=== PATIENT | female | born 1965 | race Caucasian/White ===

== ENCOUNTER → 2016-07-28 | Outpatient (CLI) | payer BC ==
--- NOTE | 2016-07-28 16:26 | CR ---
EXAMINATION: Bilateral knees HISTORY: Pain COMPARISON: 06/26/2014 TECHNIQUE: 4 views bilaterally FINDINGS: There is no acute osseous abnormality, dislocation, or fracture identified. Bone mineraliz ation and joint spaces appear normal. No soft tissue swelling or joint effusion. IMPRESSION: Unremarkable bilateral knees.
== END ==
LOC: MW.CHORTHO 11:07
PROVIDERS: ATTEND Physician Assistant
DX: M25.562 Pain in left knee (principal); M25.561 Pain in right knee
CPT/HCPCS: 735642650; 73564-50

== ENCOUNTER → 2016-08-05 | Outpatient (CLI) | payer BC ==
[2016-08-05 09:59] LABS: CHLORIDE,CL 104 mmol/L (98-110); SODIUM,NA 138 mmol/L (136-146)
== END ==
LOC: MW.CHIM 08:55
PROVIDERS: ATTEND Internal Medicine
DX: I10 Essential (primary) hypertension (principal); R73.01 Impaired fasting glucose
CPT/HCPCS: 36415; 80053; 80061; 83036; 84443; 85025

== ENCOUNTER → 2016-10-14 | Outpatient (CLI) | payer BC ==
--- NOTE | 2016-10-14 15:08 | CR ---
EXAMINATION: Left shoulder HISTORY: Pain COMPARISON: 06/04/2014 TECHNIQUE: 3 views FINDINGS/IMPRESSION: There is no acute osseous abnormality, dislocation, or fracture identified. Acr omioclavicular osteoarthritic changes are noted. Bone mineralization is otherwise normal.
== END ==
LOC: MW.CHIM 10:24
PROVIDERS: ATTEND Internal Medicine
DX: M25.512 Pain in left shoulder (principal); M19.012 Primary osteoarthritis, left shoulder
CPT/HCPCS: 36415; 73030-26-LT; 73030-LT; 85652; 86140

== ENCOUNTER 2016-11-12 09:13 | Day surgery (SDC) | payer BC ==
[~2016-11-12 09:13] MED LIST: Acetaminophen/HYDROcodone 325-5 MG Tab PO PRN; Lactated Ringers 1,000 ML IV SCH; Lidocaine 1% 20 ML MDV ONE; ceFAZolin 2 GM in Premix Bag 1 BAG IV SCH
[2016-11-12] MEDS ORDERED: Ondansetron 4 MG/2 ML SDV ONE (10:26)
[2016-11-12] MEDS ORDERED: fentaNYL 250 MCG/5 ML SDV ONE (10:26)
[2016-11-12] MEDS ORDERED: Midazolam 1 MG/ML 2 ML SDV ONE (10:26)
[2016-11-12] MEDS ORDERED: Propofol 200 MG/20 ML SDV ONE (10:26)
[2016-11-12] MEDS ORDERED: Lidocaine 2% 5 ML SDV ONE (10:26)
[2016-11-12] MEDS ORDERED: ceFAZolin 1 GM Vial ONE (10:28)
[2016-11-12] MEDS ORDERED: Sodium Chloride 0.9% 20 ML ONE (10:28)
[2016-11-12] MEDS ORDERED: Albuterol/Ipratropium 3.0-0.5 MG/3 ML Neb Soln NEB ONE (11:08)
--- NOTE | 2016-11-12 11:08 | PCM.PREANE ---
Preanesthetic Assessment - Procedure Proposed Procedure: Left Knee Arthroscopic exam and care PRN - Anesthesia/Transfusion/Family Hx Anesthesia History: Prior Anesthesia Without Reaction Family History of Anesthesia Reaction: No Transfusion History: No Prior Transfusion(s) Intubation History: Unknown - Review of Systems General: No Symptoms Pulmonary: Other (smoker) Cardiovascular: Other (HTN - treated with meds) Gastrointestinal: No symptoms Neurological: Gait Disturbance (due to knee arthritis (bilateral)) - Physical Assessment NPO Status Date: 11/11/16 NPO Status Time: 23:00 Height: 5 ft 6 in Weight: 217 lb ASA Class: 3 Mental Status: Alert & Oriented x3 Airway Class: Mallampati = 1 Dentition: Reports: Normal Dentition, Partial Thyro-Mental Finger Breadths: 3 Mouth Opening Finger Breadths: 3 ROM/Head Extension: Full Lungs: Normal respiratory effort, Rhonchi (did not clear with coughs) Cardiovascular: Regular Rate, Regular Rhythm, No Murmurs - Lab Values: Laboratory Last Values Urine HCG, Qual NEGATIVE (NEGATIVE) 11/12/16 09:20 - Allergies Allergies/Adverse Reactions: Allergies Allergy/AdvReac Type Severity Reaction Status Date / Time No Known Allergies Allergy Verified 06/04/14 17:34 - Blood Blood Available: No Product(s) Available: None - Anesthesia Plan Free Text/Narrative:: Ordered albuterol neb treatment preop - Acknowledgements Anesthesia Type Planned: General Anesthesia (OET vs LMA) Pt an Appropriate Candidate for the Planned Anesthesia: Yes Alternatives and Risks of Anesthesia Discussed w Pt/Guardian: Yes Pt/Guardian Understands and Agrees with Anesthesia Plan: Yes PreAnesthesia Questionnaire HEENT History: Reports: Other (See Below) Other HEENT History: wears reading glasses, has top denture Cardiovascular History: Reports: Hypertension Gastrointestinal History: Reports: Hepatitis Other Gastrointestinal History: hepatitis C, 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: Endocrine/Metabolic History: Reports: Obesity/BMI 30+ - Past Surgical History Head Surgeries/Procedures: Reports: None Female Surgical History: Reports: Cervical Cryotherapy, Tubal Ligation Musculoskeletal Surgical History: Reports: Carpal Tunnel - SUBSTANCE USE Smoking Status *Q: Current Every Day Smoker Days Per Week of Alcohol Use: 1 Number of Drinks Per Day: 2 Total Drinks Per Week: 2 Recreational Drug Use History: No - HOME MEDS Home Medications: Home Meds Lisinopril 20 mg PO DAILY 11/06/16 [History] Ibuprofen 2 tab PO ASDIRECTED PRN 11/10/16 [History] - CURRENT (IN HOUSE) MEDS Current Meds: Current Medications Hydrocodone Bitart/Acetaminophen ([place] 325-5 Mg) 1 - 2 tab PO Q4H PRN PRN Reason: Pain Fentanyl (Sublimaze) 50 mcg IVPUSH Q5M PRN PRN Reason: Pain (severe 7-10) Stop: 11/13/16 08:39 Lactated Ringer's (Ringers, Lactated) 1,000 mls @ 100 mls/hr IV ASDIRECTED NATALIA Cefazolin Sodium/Dextrose 2 gm (/ Premix) 50 mls @ 100 mls/hr IV ONCALL [facility] Discontinued Medications Cefazolin Sodium (Ancef) Confirm Administered Dose 2 gm .ROUTE .STK-MED ONE Stop: 11/12/16 10:29 Fentanyl (Sublimaze) Confirm Administered Dose 250 mcg .ROUTE .STK-MED ONE Stop: 11/12/16 10:27 Sodium Chloride (Normal Saline) Confirm Administered Dose 20 mls @ as directed .ROUTE .STK-MED ONE Stop: 11/12/16 10:29 Lidocaine (Xylocaine-Mpf 2%) Confirm Administered Dose 5 ml .ROUTE .STK-MED ONE Stop: 11/12/16 10:27 Lidocaine HCl (Xylocaine 1%) Confirm Administered Dose 20 ml .ROUTE .STK-MED ONE Stop: 11/11/16 15:00 Midazolam HCl (Versed 1 Mg/Ml) Confirm Administered Dose 2 mg .ROUTE .STK-MED ONE Stop: 11/12/16 10:27 Ondansetron HCl (Zofran) Confirm Administered Dose 4 mg .ROUTE .STK-MED ONE Stop: 11/12/16 10:27 Propofol (Diprivan 20 Ml) Confirm Administered Dose 200 mg .ROUTE .STK-MED ONE Stop: 11/12/16 10:27
--- NOTE | 2016-11-12 11:57 | PCM.OPNOTE ---
- General Post-Op/Procedure Note Date of Surgery/Procedure: 11/12/16 Operative Procedure(s): L knee arthroscopy with limited synovectomy Post-Op Diagnosis: DJD L knee. Plica left knee Anesthesia Technique: General LMA Primary Surgeon: Rose Sepulveda Configuration Engineer: Jimena De La O in mLs: 5 Condition: Good Free Text/Narrative:: tt=16 min #[id number]
[2016-11-12] MEDS: fentaNYL 100 MCG/2 ML SDV IVPUSH PRN ×2 (12:57→13:02)
--- NOTE | 2016-11-12 13:53 | PCM.POSTAN ---
POST ANESTHESIA ASSESSMENT - MENTAL STATUS Mental Status: alert, oriented - RESPIRATORY Respiratory Status: respiratory rate WNL, airway patent, O2 saturation stable - CARDIOVASCULAR CV Status: pulse rate WNL, blood pressure stable - GASTROINTESTINAL GI Status: no symptoms - PAIN Pain Score: 2 - POST OP HYDRATION Hydration Status: adequate & stable
--- NOTE | 2016-11-12 13:55 | PCM48HPAN ---
Post Anesthesia Note - EVALUATION WITHIN 48HRS OF ANESTHETIC Vital Signs in Normal Range: Yes Patient Participated in Evaluation: Yes Respiratory Function Stable: Yes Airway Patent: Yes Cardiovascular Function Stable: Yes Hydration Status Stable: Yes Pain Control Satisfactory: Yes Nausea and Vomiting Control Satisfactory: Yes Mental Status Recovered: Yes
[2016-11-12 14:41] VITALS: BP 128/78
--- NOTE | 2016-11-12 15:20 | OR ---
SURGEON: Rose Sepulveda MD DATE OF PROCEDURE: 11/12/2016 PREOPERATIVE DIAGNOSIS: Left knee suprapatellar plica. POSTOPERATIVE DIAGNOSES: 1. Left knee suprapatellar plica. 2. Degenerative joint disease, left knee. PROCEDURE: Left knee arthroscopy with limited synovectomy. CYLINDER LOADER: Jimena De La O PA-C. ANESTHESIA: General. ESTIMATED BLOOD LOSS: 5 mL. TOURNIQUET TIME: 16 minutes. COMPLICATIONS: None. DVT PROPHYLAXIS: Not indicated. IMPLANTS USED: None. BRIEF HISTORY: Noreen is a 50-year-old female, who has had complaint of persistent left knee pain. She had tried conservative treatment, which did not give her lasting relief. Due to her lack of response to conservative treatment, I did recommend surgical intervention. The risks and goals of the procedure were discussed with the patient and were documented preoperatively. She agreed to proceed. DESCRIPTION OF PROCEDURE: The patient was properly identified and brought to the operating room. She was transferred from the OR cart and placed on the operating table in supine position. General anesthesia was administered. After adequate anesthesia was obtained, a well-padded tourniquet was applied to the left lower extremity. The left lower extremity was then prepped in a standard fashion using ChloraPrep solution. It was then sterilely draped. A time-out was performed to ensure correct site and procedure. Preoperative antibiotics were given. The surgical site had been marked preoperatively. An Esmarch was used to exsanguinate the left lower extremity and the tourniquet was inflated to 250 mmHg. An 11 blade scalpel was used to make a lateral portal arthrotomy. Blunt trocar and cannula were introduced into the suprapatellar pouch. The camera, inflow, and outflow were assembled. The suprapatellar pouch showed mild synovitis. Abundant plica folds were noted. These did not appear to be causing any intraarticular catching. The patellofemoral joint was then visualized. The patella did show evidence of grade 2 to grade 3 chondromalacia diffusely. The trochlear groove showed minor degenerative changes only. The patella appeared to track centrally. I then extended down the lateral and medial gutter. No loose bodies were identified. I then entered the medial compartment. A medial portal arthrotomy was established. A blunt probe was inserted. The meniscus was probed. Minor degenerative fraying was noted centrally, however, no tearing was noted. She did have diffuse grade 1 to grade 2 chondromalacia along both the femoral and tibial surfaces. I then entered the notch. Both the ACL and PCL were visualized and probed and found to be intact. I then entered the lateral compartment. There appeared to be minor softening with grade 1 to grade 2 chondromalacia along the lateral tibial plateau. No degenerative changes were noted along the lateral femoral condyle. The meniscus was probed and found to be intact. I then re-entered the patellofemoral joint. No wearing of the cartilage was noted and no chondroplasty was performed. I then entered the suprapatellar space. The plica folds were excised with a 4.0 mm shaver. Instruments were then removed from the knee. The portal sites were closed with 3-0 nylon. Lidocaine 1% was injected along the portal tracts. Xeroform gauze was placed over the wound and a bulky dressing was applied. The tourniquet was then deflated. She was awakened from her anesthetic and transferred back to the operating room cart. She was brought to recovery room in stable condition. All needle and sponge counts were correct. MARIE / TAI /[id number]
== END 2016-11-12 14:30 | disposition home or self-care (01) ==
LOC: MW.SDS 09:13
PROVIDERS: ATTEND Orthopaedic Surgery
PROC: 0SBD4ZZ Excision of Left Knee Joint, Percutaneous Endoscopic Approach (ICD-10-PCS; principal; 2016-11-12)
DX: M67.52 Plica syndrome, left knee (principal); M65.862 Other synovitis and tenosynovitis, left lower leg; M94.262 Chondromalacia, left knee; M17.0 Bilateral primary osteoarthritis of knee; F17.210 Nicotine dependence, cigarettes, uncomplicated; I10 Essential (primary) hypertension; E66.9 Obesity, unspecified; Z86.19 Personal history of other infectious and parasitic diseases; Z79.899 Other long term (current) drug therapy; Z68.35 Body mass index [BMI] 35.0-35.9, adult; Z98.51 Tubal ligation status; Z98.890 Other specified postprocedural states
CPT/HCPCS: 29875; 81025; A9270; J0690; J2250; J2405; J3010; J7120; 01400; 88304; J2704

== ENCOUNTER 2017-01-11 16:35 | Emergency (ER) | payer BC ==
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
[2017-01-11] MEDS ORDERED: Proparacaine 0.5% Ophth Soln 15 ML Bottle EYEBOTH STA (17:02)
[2017-01-11] MEDS ORDERED: Proparacaine 0.5% Ophth Soln 15 ML Bottle EYELF ONE (17:03)
[2017-01-11] MEDS ORDERED: Proparacaine 0.5% Ophth Soln 15 ML Bottle ONE (17:04)
[2017-01-11] MEDS ORDERED: diphenhydrAMINE 25 MG Cap PO ONE (17:22)
[2017-01-11 17:51] VITALS: BP 127/79
== END 2017-01-11 17:52 | disposition home or self-care (01) ==
LOC: MW.ED 16:35
DX: H10.12 Acute atopic conjunctivitis, left eye (principal); F17.210 Nicotine dependence, cigarettes, uncomplicated
CPT/HCPCS: 99283; A9270; 99282

== ENCOUNTER 2019-06-07 11:07 | Emergency (ER) | payer BC ==
--- NOTE | 2019-06-07 11:24 | EDM.PDOC ---
ED HPI GENERAL MEDICAL PROBLEM - General Chief Complaint: General Stated Complaint: STOMACH PAIN Time Seen by Provider: 06/07/19 11:20 Source of Information: Reports: Patient History Limitations: Reports: No Limitations - History of Present Illness INITIAL COMMENTS - FREE TEXT/NARRATIVE: HISTORY AND PHYSICAL: History of present illness: Patient is a 53-year-old female who presents to the emergency room today with complaints of right-sided chest wall pain. Patient reports that a few days ago she had coughed "really hard" and felt a popping sensation to her right lateral chest. States the area was tender and felt that it was painful to cough and take deep breaths. A day or 2 later she was reaching for something and felt like she "tore something" in her rib area. She states she had planned on seeing her primary care provider today (for gallbladder) but they called her to cancel her appointment and she is not able to be seen until tomorrow. That appointment was for assessment of her gallbladder which she states she has been having abdominal pain for several months, does not want this evaluated today as she already has an appointment for this tomorrow. Patient denies any fever, chills, headache, change in vision, syncope or near syncope. Denies any chest pain, back pain, shortness of breath or cough. Denies any abdominal pain, nausea , vomiting, diarrhea, constipation or dysuria. Has not noted any blood in urine or stool. Patient has been eating and drinking appropriately. Review of systems: As per history of present illness and below otherwise all systems reviewed and negative. Past medical history: As per history of present illness and as reviewed below otherwise noncontributory. Surgical history: As per history of present illness and as reviewed below otherwise noncontributory. Social history: See social history for further information Family history: As per history of present illness and as reviewed below otherwise noncontributory. Physical exam: General: Well-developed and well-nourished 53-year-old female. Alert and appropriate for age. Nontoxic-appearing and in no acute distress. HEENT: Atraumatic, normocephalic, pupils equal and reactive bilaterally, negative for conjunctival pallor or scleral icterus, mucous membranes moist, TMs normal bilaterally, throat clear, neck supple, nontender, trachea midline. No drooling or trismus noted. No meningeal signs. No hot potato voice noted. Lungs: Rhonchi noted to the right lower lung field, breath sounds equal bilaterally, right anterior and lateral chest wall pain with palpation -no herpetic lesions noted. Pain with deep breathing and coughing. Heart: S1S2, regular rate and rhythm without overt murmur Abdomen: Soft, nondistended, obese, nontender. Negative for masses or hepatosplenomegaly. Negative for costovertebral tenderness. Pelvis: Stable nontender. Skin: Intact, warm, dry. No lesions or rashes noted. Extremities: Atraumatic, moves all extremities per self without difficulty or deficits, negative for cords or calf pain. Neurovascular unremarkable. Neuro: Awake, alert, oriented. Cranial nerves II through XII unremarkable. Cerebellum unremarkable. Motor and sensory unremarkable throughout. Exam nonfocal. Notes: During the triage assessment the patient did fall as an indicator for sepsis protocol. Lab work is unremarkable with the exception that her lactate is elevated. IV fluids and abx have been hung. X-ray shows suspicion for 3 right- sided rib fractures involving the approximate seventh through ninth ribs. NO pneumonia noted. I did discuss with patient her elevated lactate and offered her admission. She states she has an appointment tomorrow morning with her primary care provider at [facility] for her gallbladder evaluation. She does not want admission. We did discuss the severity of a elevated lactate and this could be sepsis. We also discussed doing a CT of her chest which she declines. She states she feels much improved after the breathing treatment, pain medication and fluids. She is agreeable to receiving the antibiotics and to be discharged to home on antibiotics. I did encourage that she bring the lab report to her primary care provider tomorrow. We discussed signs and symptoms that would prompt her to return to the emergency room. Both patient and voiced understanding. Diagnostics: CBC, CMP, Lactic, CXR w/ rib, D[employer]: DuoNeb, [place], Solu-Medrol, Rocephin, IV fluid Prescription: [place], Z-David, Medrol Dosepak Impression: Rib fractures, multiple Elevated lactic acid level Plan: 1. Please use Tylenol and/or Ibuprofen as needed for pain and fever management. [place] 1-2 tabs every 4 hours PRN. 2. Get plenty of Rest. Encourage fluids to prevent dehydration. Take your discharge packet with you to your appointment tomorrow at [facility]. 3. Make sure you are using your incentive spirometer every 2-3 hours while awake. 4. Return to the ED as needed as discussed. Definitive disposition and diagnosis as appropriate pending reevaluation and review of above. right side pain Pain Score (Numeric/FACES): 10 - Related Data Allergies Allergy/AdvReac Type Severity Reaction Status Date / Time No Known Allergies Allergy Verified 06/04/14 17:34 Home Meds: Home Meds Acetaminophen/HYDROcodone [[place] 325-5 MG] 1 dose PO Q4H #20 tablet 06/07/19 [Rx ] Azithromycin [Zithromax] 1 dose PO DAILY 5 Days #6 tab 06/07/19 [Rx] methylPREDNISolone [Medrol] 1 dose PO DAILY 6 Days #1 dospk 06/07/19 [Rx] Past Medical History - Past Health History Medical/Surgical History: Denies Medical/Surgical History HEENT History: Reports: Other (See Below) Other HEENT History: wears reading glasses, has top denture Cardiovascular History: Reports: Hypertension Gastrointestinal History: Reports: Hepatitis Other Gastrointestinal History: hepatitis C, 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 History: Reports: None GRADUATE FELLOW History: Endocrine/Metabolic History: Reports: Obesity/BMI 30+ - Infectious Disease History Infectious Disease History: Reports: Hepatitis non A,B,C - Past Surgical History Head Surgeries/Procedures: Reports: None Female Surgical History: Reports: Cervical Cryotherapy, Tubal Ligation Musculoskeletal Surgical History: Reports: Carpal Tunnel Social & Family History - Caffeine Use Caffeine Use: Reports: Coffee ED ROS GENERAL - Review of Systems Review Of Systems: Comprehensive ROS is negative, except as noted in HPI. ED EXAM, GENERAL - Physical Exam Exam: See Below (See dictation) Course - Vital Signs Last Recorded V/S: Last Vital Signs Temp 96.9 F 06/07/19 13:17 Pulse 83 06/07/19 14:09 Resp 20 06/07/19 14:09 BP 142/90 H 06/07/19 13:17 Pulse Ox 96 06/07/19 14:09 - Orders/Labs/Meds Orders: Active Orders 24 hr Category Date Time Status Incentive Spirometry [RT Incentive Spirometry] [RC] Care 06/07/19 14:44 Active ASDIRECTED RT Aerosol Therapy [RC] ASDIRECTED Care 06/07/19 11:38 Active CULTURE BLOOD [BC] Stat Lab 06/07/19 13:39 Received CULTURE BLOOD [BC] Stat Lab 06/07/19 13:42 Received Blood Culture x2 Reflex Set [OM.PC] Stat Oth 06/07/19 13:23 Ordered Labs: Laboratory Tests 06/07/19 06/07/19 06/07/19 Range/Units 11:50 11:50 11:50 WBC 5.62 (4.0-11.0) K/uL RBC 4.78 (4.30-5.90) M/uL Hgb 15.2 (12.0-16.0) g/dL Hct 44.5 (36.0-46.0) % MCV 93.1 (80.0-98.0) fL MCH 31.8 (27.0-32.0) pg MCHC 34.2 (31.0-37.0) g/dL RDW Std Deviation 45.8 (28.0-62.0) fl RDW Coeff of Flaquito 13 (11.0-15.0) % Plt Count 194 (150-400) K/uL MPV 9.90 (7.40-12.00) fL Neut % (Auto) 55.3 (48.0-80.0) % Lymph % (Auto) 29.9 (16.0-40.0) % [place] % (Auto) 5.0 (0.0-15.0) % Eos % (Auto) 9.3 H (0.0-7.0) % Baso % (Auto) 0.5 (0.0-1.5) % Neut # (Auto) 3.1 (1.4-5.7) K/uL Lymph # (Auto) 1.7 (0.6-2.4) K/uL [place] # (Auto) 0.3 (0.0-0.8) K/uL Eos # (Auto) 0.5 (0.0-0.7) K/uL Baso # (Auto) 0.0 (0.0-0.1) K/uL Nucleated RBC % 0.0 /100WBC Nucleated RBCs # 0 K/uL D-Dimer, Quantitative 0.48 (0.0-0.50) mg/L FEU Lactate (0.20-2.00) mmol/L Sodium 138 (136-145) mmol/L Potassium 4.1 (3.5-5.1) mmol/L Chloride 99 (98-107) mmol/L Carbon Dioxide 30.3 (21.0-32.0) mmol/L BUN 12 (7.0-18.0) mg/dL Creatinine 0.8 (0.6-1.0) mg/dL Est Cr Clr Drug Dosing 77.88 mL/min Estimated GFR (MDRD) > 60.0 ml/min Glucose 203 H (74-106) mg/dL Calcium 9.0 (8.5-10.1) mg/dL Total Bilirubin 0.4 (0.2-1.0) mg/dL AST 32 (15-37) IU/L ALT 79 H (14-63) IU/L Alkaline Phosphatase 72 (46-116) U/L Total Protein 7.6 (6.4-8.2) g/dL Albumin 3.7 (3.4-5.0) g/dL Globulin 3.9 (2.6-4.0) g/dL Albumin/Globulin Ratio 0.9 (0.9-1.6) 06/07/19 Range/Units 12:35 WBC (4.0-11.0) K/uL RBC (4.30-5.90) M/uL Hgb (12.0-16.0) g/dL Hct (36.0-46.0) % MCV (80.0-98.0) fL MCH (27.0-32.0) pg MCHC (31.0-37.0) g/dL RDW Std Deviation (28.0-62.0) fl RDW Coeff of Flaquito (11.0-15.0) % Plt Count (150-400) K/uL MPV (7.40-12.00) fL Neut % (Auto) (48.0-80.0) % Lymph % (Auto) (16.0-40.0) % Denton % (Auto) (0.0-15.0) % Eos % (Auto) (0.0-7.0) % Baso % (Auto) (0.0-1.5) % Neut # (Auto) (1.4-5.7) K/uL Lymph # (Auto) (0.6-2.4) K/uL Denton # (Auto) (0.0-0.8) K/uL Eos # (Auto) (0.0-0.7) K/uL Baso # (Auto) (0.0-0.1) K/uL Nucleated RBC % /100WBC Nucleated RBCs # K/uL D-Dimer, Quantitative (0.0-0.50) mg/L FEU Lactate 2.1 H* (0.20-2.00) mmol/L Sodium (136-145) mmol/L Potassium (3.5-5.1) mmol/L Chloride (98-107) mmol/L Carbon Dioxide (21.0-32.0) mmol/L BUN (7.0-18.0) mg/dL Creatinine (0.6-1.0) mg/dL Est Cr Clr Drug Dosing mL/min Estimated GFR (MDRD) ml/min Glucose (74-106) mg/dL Calcium (8.5-10.1) mg/dL Total Bilirubin (0.2-1.0) mg/dL AST (15-37) IU/L ALT (14-63) IU/L Alkaline Phosphatase (46-116) U/L Total Protein (6.4-8.2) g/dL Albumin (3.4-5.0) g/dL Globulin (2.6-4.0) g/dL Albumin/Globulin Ratio (0.9-1.6) Meds: Medications Discontinued Medications Generic Name Dose Route Start Last Admin Trade Name Freq PRN Reason Stop Dose Admin Hydrocodone Bitart/Acetaminophen 1 tab 06/07/19 11:37 06/07/19 11:57 [place] 325-5 Mg PO 06/07/19 11:38 1 tab ONETIME ONE Administration Albuterol/Ipratropium 3 ml 06/07/19 11:38 06/07/19 11:57 Duoneb 3.0-0.5 Mg/3 Ml NEB 06/07/19 11:39 3 ml ONETIME ONE Administration Sodium Chloride 1,000 mls @ 999 mls/hr 06/07/19 13:21 06/07/19 13:39 Normal Saline IV 06/07/19 14:21 999 mls/hr STAT ONE Administration Ceftriaxone Sodium/Dextrose 1 50 mls @ 100 mls/hr 06/07/19 13:47 06/07/19 14: 08 gm/ Premix IV 06/07/19 14:16 100 mls/hr ONETIME ONE Administration Ketorolac Tromethamine 30 mg 06/07/19 13:24 06/07/19 13:39 Toradol IVPUSH 06/07/19 13:25 30 mg ONETIME ONE Administration Methylprednisolone Sodium Succinate 125 mg 06/07/19 13:24 06/07/19 13:39 Solu-Medrol IVPUSH 06/07/19 13:25 125 mg ONETIME ONE Administration Departure - Departure Time of Disposition: 14:41 Disposition: Home, Self-Care 01 Clinical Impression: Elevated lactic acid level Rib fracture Qualifiers: Encounter type: initial encounter Rib fracture type: multiple ribs Fracture type: closed Laterality: right Qualified Code(s): S22.41XA - Multiple fractures of ribs, right side, initial encounter for closed fracture - Discharge Information Prescriptions: Acetaminophen/HYDROcodone [[place] 325-5 MG] 1 dose PO Q4H #20 tablet Azithromycin [Zithromax] 1 dose PO DAILY 5 Days #6 tab methylPREDNISolone [Medrol] 1 dose PO DAILY 6 Days #1 dospk Referrals: Beka Reynoso MD [Primary Care Provider] - Forms: ED Department Discharge Additional Instructions: The following information is given to patients seen in the emergency department who are being discharged to home. This information is to outline your options for follow-up care. We provide all patients seen in our emergency department with a follow-up referral. The need for follow-up, as well as the timing and circumstances, are variable depending upon the specifics of your emergency department visit. If you don't have a primary care physician on staff, we will provide you with a referral. We always advise you to contact your personal physician following an emergency department visit to inform them of the circumstance of the visit and for follow-up with them and/or the need for any referrals to a consulting specialist. The emergency department will also refer you to a specialist when appropriate. This referral assures that you have the opportunity for follow-up care with a specialist. All of these measure are taken in an effort to provide you with optimal care, which includes your follow-up. Under all circumstances we always encourage you to contact your private physician who remains a resource for coordinating your care. When calling for follow-up care, please make the office aware that this follow-up is from your recent emergency room visit. If for any reason you are refused follow-up, please contact the [facility] Emergency Department at and asked to speak to the emergency department charge nurse. [facility] [address] [place] [address] [facility] [address] [place] [id number] 1. Please use Tylenol and/or Ibuprofen as needed for pain and fever management. [place] 1-2 tabs every 4 hours PRN. This medication may cause drowsiness a do not take it while driving her needing to be functioning outside of the house. 2. Get plenty of Rest. Encourage fluids to prevent dehydration. Take your discharge packet with you to your appointment tomorrow at [facility]. 3. Make sure you are using your incentive spirometer every 2-3 hours while awake. 4. Return to the ED as needed as discussed. Sepsis Event Note - Focused Exam Vital Signs: Vital Signs Temp Pulse Resp BP Pulse Ox 06/07/19 14:09 83 20 96 06/07/19 13:17 96.9 F 92 142/90 H 93 L 06/07/19 12:10 99 18 97 06/07/19 11:59 93 20 98 06/07/19 11:28 95.9 F 105 H 15 135/99 H 95 Date Exam was Performed: 06/07/19 Time Exam was Performed: 14:48 - My Orders Last 24 Hours: My Active Orders 06/07/19 11:38 RT Aerosol Therapy [RC] ASDIRECTED 06/07/19 13:23 Blood Culture x2 Reflex Set [OM.PC] Stat 06/07/19 13:39 CULTURE BLOOD [BC] Stat 06/07/19 13:42 CULTURE BLOOD [BC] Stat 06/07/19 14:44 Incentive Spirometry [RT Incentive Spirometry] [RC] ASDIRECTED - Assessment/Plan Last 24 Hours: My Active Orders 06/07/19 11:38 RT Aerosol Therapy [RC] ASDIRECTED 06/07/19 13:23 Blood Culture x2 Reflex Set [OM.PC] Stat 06/07/19 13:39 CULTURE BLOOD [BC] Stat 06/07/19 13:42 CULTURE BLOOD [BC] Stat 06/07/19 14:44 Incentive Spirometry [RT Incentive Spirometry] [RC] ASDIRECTED
[2019-06-07] MEDS ORDERED: Acetaminophen/HYDROcodone 325-5 MG Tab PO ONE (11:37)
[2019-06-07] MEDS ORDERED: Albuterol/Ipratropium 3.0-0.5 MG/3 ML Neb Soln NEB ONE (11:38)
[2019-06-07 12:34] LABS: BLOOD UREA NITROGEN,BUN 12 mg/dL (7.0-18.0); CARBON DIOXIDE,CO2 30.3 mmol/L (21.0-32.0); CHLORIDE,CL 99 mmol/L (98-107); GLUCOSE RANDOM 203 mg/dL (74-106); POTASSIUM,K 4.1 mmol/L (3.5-5.1); SODIUM,NA 138 mmol/L (136-145)
[2019-06-07] MEDS ORDERED: Sodium Chloride 0.9% 1,000 ML IV ONE (13:21)
[2019-06-07] MEDS ORDERED: Ketorolac 30 MG/ML SDV IVPUSH ONE (13:24)
[2019-06-07] MEDS ORDERED: methylPREDNISolone Sodium Succinate 125 MG/2 ML SDV IVPUSH ONE (13:24)
[2019-06-07] MEDS ORDERED: cefTRIAXone 1 GM in Premix Bag 1 BAG IV ONE (13:47)
--- NOTE | 2019-06-07 13:48 | CR ---
Chest and right ribs: Frontal view of the chest was obtained as well as 3 views of the right ribs. Comparison: Prior chest x-ray of 12/20/12. Heart size and mediastinum are normal. Lungs are clear. Possible nondisplaced right seventh rib fracture is noted. Probable fracture within the eighth and ninth ribs also noted. No additional rib abnormality is seen. Impression: 1. Findings suspicious for 3 right-sided rib fractures involving the approximate seventh through ninth ribs. 2. Nothing acute is seen on accompanying chest x-ray. Diagnostic code #3 This report was dictated in [place] Standard Time
[2019-06-07 14:56] VITALS: BP 129/90; PULSE 80
== END 2019-06-07 15:06 | disposition home or self-care (01) ==
LOC: MW.ED 11:07
DX: S22.41XA Multiple fractures of ribs, right side, initial encounter for closed fracture (principal); R74.0 Nonspecific elevation of levels of transaminase and lactic acid dehydrogenase [LDH]; I10 Essential (primary) hypertension; E66.9 Obesity, unspecified; Z98.51 Tubal ligation status; X50.0XXA Overexertion from strenuous movement or load, initial encounter
CPT/HCPCS: 36415; 71101; 80053; 83605; 85025; 85379; 87040; 96365; 96375; 99285; A9270; J0696; J1885; J2930; J7030; 99283; J7620-GY

== ENCOUNTER 2020-07-19 02:05 | Emergency (ER) | payer BC ==
[2020-07-19] MEDS ORDERED: Sodium Chloride 0.9% 2.5 ML Syringe FLUSH PRN (02:33)
[2020-07-19] MEDS ORDERED: Aspirin 81 MG Tab.Chew PO ONE (02:33)
[2020-07-19] MEDS ORDERED: Sodium Chloride 0.9% 10 ML Syringe FLUSH PRN (02:33)
[2020-07-19] MEDS ORDERED: Metoprolol Succinate 50 MG Tab.ER PO ONE (02:36)
[2020-07-19] MEDS ORDERED: Nitroglycerin 2% Oint 1 GM UD Packet TOP ONE (02:37)
--- NOTE | 2020-07-19 02:48 | EDM.PDOC ---
ED HPI GENERAL MEDICAL PROBLEM - General Chief Complaint: Chest Pain Stated Complaint: CHEST PAIN, HIGH BP Time Seen by Provider: 07/19/20 02:26 - History of Present Illness INITIAL COMMENTS - FREE TEXT/NARRATIVE: HISTORY AND PHYSICAL: History of present illness: This is a 54-year-old female with a history significant for hypertension, diabetes, COPD, who presents ER today secondary to chest pain and discomfort that started this evening while she was lying to rest. Patient reports that she experienced associated shortness of breath with discomfort radiating down both arms. Patient reports that the pain felt like heaviness in her chest. Patient reports that she checked her blood pressure when the symptoms began and she noted that her heart rate at that time was approximately 160 bpm. Patient presents to the ER today secondary to concern regarding the chest discomfort that she was having and the elevated heart rate. Patient reports that once in the past, while she was at [facility] that she had a heart rate that was approximately 160 bpm. She reports that she saw her primary care physician to evaluate this however during the evaluation her heart rate was normal and he did not recommend cardiac evaluation or a Holter monitor at that time. She reports that she has never been admitted or worked up for SVT in the past. Patient denies any recent fevers, shakes, chills, nausea, vomiting, diarrhea, dysuria, frequency, urgency, abdominal pain. Review of systems: As per history of present illness and below otherwise all systems reviewed and negative. Past medical history: As per history of present illness and as reviewed below otherwise noncontributory. Surgical history: As per history of present illness and as reviewed below otherwise noncontributory. Social history: No reported history of drug or alcohol abuse. Family history: As per history of present illness and as reviewed below otherwise noncontributory. Physical exam: Constitutional: Patient is oriented to person, place, and time. Appears well- developed and well-nourished. No distress. Morbidly obese HEENT: Moist mucous membranes Head: Normocephalic and atraumatic Eyes: Right eye exhibits no discharge. Left eye exhibits no discharge. No scleral icterus Neck: Normal range of motion. No tracheal deviation present. Cardiovascular: Tachycardic and regular rhythm. Pulmonary: Effort normal, no respiratory distress. Abdominal: No distention Musculoskeletal: Normal range of motion Neurologic: Alert and oriented to person, place and time. Skin: [place], warm and dry. Psychiatric: Normal mood and affect. Behavior is normal. Judgment and thought content normal. Nursing note and vital signs have been reviewed This patient was seen and evaluated during the 2019 SARS-CoV-2 novel coronavirus pandemic period. Community viral transmission is ongoing at time of this encounter and the emergency department is operating under pandemic response procedures. Diagnostics: EKG: As interpreted by ER physician: [place]: Nonspecific ST-T wave abnormalities Normal axis No evidence of ST elevation GA SVT with a heart rate of 160 EKG #2 EKG: As interpreted by ER physician: [place]: Nonspecific ST-T wave abnormalities Normal axis No evidence of ST elevation GA Normal sinus rhythm heart rate of 90 Therapeutics: Nitropaste 1 inch anterior chest wall Aspirin 325 p.o. Metoprolol 50 mg p.o. Lovenox 120 mg subcu Assessment and plan: This is a 54-year-old female who presents ER today secondary to chest pain and discomfort was noted to be in SVT in the ED. Patient's EKG revealed a heart rate of 160 bpm with no distinct P waves identified. Carotid sinus massage was performed in the ER resulting in disruption of her SVT with no flutter waves identified. Patient's heart rate is now 90 bpm. Patient will have a work-up performed to evaluate her chest pain and discomfort. Will obtain a CBC, CMP, troponin. Will also obtain a D-dimer as well as a TSH. Patient was given metoprolol 50 mg p.o. to assist with her hypertension as well as to prevent recurrence of her SVT. 5 AM: Patient has been monitored in the ER. Case has been discussed with her hospitalist Dr. Marie who requested a 2-hour troponin level prior to admission. Patient's repeat troponin level was elevated at 0.145. Given the significant change in her troponin, we will transfer patient to [facility] for further evaluation and cardiac input regarding her SVT, non-STEMI. Case discussed with Dr. Barnes who is agreed to accept patient for transfer. I have discussed plan with the patient who is in agreement. Patient reports she is currently chest pain-free. Definitive disposition and diagnosis as appropriate pending reevaluation and review of above. Chest Pain Score (Numeric/FACES): 8 - Related Data Allergies Allergy/AdvReac Type Severity Reaction Status Date / Time No Known Allergies Allergy Verified 07/19/20 02:16 Home Meds: Home Meds Hydroxychloroquine [Plaquenil] 200 mg PO 07/19/20 [History] Losartan Potassium 07/19/20 [History] Meloxicam 07/19/20 [History] hydroCHLOROthiazide [Hydrochlorothiazide] 07/19/20 [History] predniSONE 07/19/20 [History] Past Medical History - Past Health History Medical/Surgical History: Denies Medical/Surgical History HEENT History: Reports: Other (See Below) Other HEENT History: wears reading glasses, has top denture Cardiovascular History: Reports: Hypertension Other Respiratory History: Hx of pneumonia Gastrointestinal History: Reports: Hepatitis Other Gastrointestinal History: hepatitis C, 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 History: Reports: 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: Endocrine/Metabolic History: Reports: Obesity/BMI 30+ - Infectious Disease History Infectious Disease History: Reports: Chicken Pox, Hepatitis non A,B,C, Shingles - Past Surgical History Head Surgeries/Procedures: Reports: None Female Surgical History: Reports: Cervical Cryotherapy, Tubal Ligation Musculoskeletal Surgical History: Reports: Carpal Tunnel Social & Family History - Tobacco Use Tobacco Use Status *Q: Current Every Day Tobacco User Years of Tobacco use: 40 Packs/Tins Daily: 1 - Caffeine Use Caffeine Use: Reports: Coffee - Recreational Drug Use Recreational Drug Use: No ED ROS GENERAL - Review of Systems Review Of Systems: See Below ED EXAM, GENERAL - Physical Exam Exam: See Below Course - Vital Signs Last Recorded V/S: Last Vital Signs Temp 96.9 F 07/19/20 02:12 Pulse 84 07/19/20 03:06 Resp 20 07/19/20 02:12 BP 138/90 07/19/20 03:06 Pulse Ox 95 07/19/20 02:12 - Orders/Labs/Meds Orders: Active Orders 24 hr Category Date Time Status Patient Status [ADT] Routine ADT 07/19/20 03:19 Active EKG Documentation Completion [RC] AM Care 07/19/20 02:33 Active Enoxaparin [Lovenox] Med 07/19/20 05:06 Stat 120 mg SUBCUT ONETIME STA Sodium Chloride 0.9% [Saline Flush] Med 07/19/20 02:33 Active 10 ml FLUSH ASDIRECTED PRN Sodium Chloride 0.9% [Saline Flush] Med 07/19/20 02:33 Active 2.5 ml FLUSH ASDIRECTED PRN Saline Lock Insert [OM.PC] Stat Oth 07/19/20 02:33 Ordered Medication Orders Sodium Chloride (Saline Flush) 10 ml FLUSH ASDIRECTED PRN PRN Reason: Keep Vein Open Last Admin: 07/19/20 02:45 Dose: 10 ml Documented by: CARLY Sodium Chloride (Saline Flush) 2.5 ml FLUSH ASDIRECTED PRN PRN Reason: Keep Vein Open Last Admin: 07/19/20 02:44 Dose: 2.5 ml Documented by: CARLY Labs: Laboratory Tests 07/19/20 07/19/20 07/19/20 Range/Units 02:20 02:20 02:20 WBC 5.92 (4.0-11.0) K/uL RBC 4.96 (4.30-5.90) M/uL Hgb 16.1 H (12.0-16.0) g/dL Hct 47.9 H (36.0-46.0) % MCV 96.6 (80.0-98.0) fL MCH 32.5 H (27.0-32.0) pg MCHC 33.6 (31.0-37.0) g/dL RDW Std Deviation 46.9 (28.0-62.0) fl RDW Coeff of Flaquito 13 (11.0-15.0) % Plt Count 188 (150-400) K/uL MPV 10.50 (7.40-12.00) fL Add Manual Diff YES Neutrophils % (Manual) 35 L (48.0-80.0) % Lymphocytes % (Manual) 34 (16.0-40.0) % Monocytes % (Manual) 8 (0.0-15.0) % Eosinophils % (Manual) 23 H (0.0-7.0) % Nucleated RBC % 0.0 /100WBC Absolute Seg Neuts 2.1 (1.4-5.7) Lymphocytes # (Manual) 2.0 (0.6-2.4) Monocytes # (Manual) 0.5 (0.0-0.8) Eosinophils # (Manual) 1.4 H (0.0-0.7) Nucleated RBCs # 0 K/uL INR APTT (18.6-31.3) SEC D-Dimer, Quantitative (0.0-0.50) mg/L FEU Sodium 138 (136-145) mmol/L Potassium 4.5 (3.5-5.1) mmol/L Chloride 101 (98-107) mmol/L Carbon Dioxide 27.2 (21.0-32.0) mmol/L BUN 11 (7.0-18.0) mg/dL Creatinine 1.0 (0.6-1.0) mg/dL Est Cr Clr Drug Dosing 61.61 mL/min Estimated GFR (MDRD) 58.2 ml/min Glucose 231 H (74-106) mg/dL Calcium 8.9 (8.5-10.1) mg/dL Total Bilirubin 0.3 (0.2-1.0) mg/dL AST 49 H (15-37) IU/L ALT 86 H (14-63) IU/L Alkaline Phosphatase 106 (46-116) U/L Troponin I < 0.050 (0.000-0.056) ng/mL B-Natriuretic Peptide 16 (<100) PG/ML Total Protein 7.7 (6.4-8.2) g/dL Albumin 3.6 (3.4-5.0) g/dL Globulin 4.1 H (2.6-4.0) g/dL Albumin/Globulin Ratio 0.9 (0.9-1.6) TSH 3rd Generation 1.51 (0.36-3.74) uIU/mL SARS-CoV-2 RNA (KLEBER) (NEGATIVE) 07/19/20 07/19/20 07/19/20 Range/Units 02:20 02:45 04:16 WBC (4.0-11.0) K/uL RBC (4.30-5.90) M/uL Hgb (12.0-16.0) g/dL Hct (36.0-46.0) % MCV (80.0-98.0) fL MCH (27.0-32.0) pg MCHC (31.0-37.0) g/dL RDW Std Deviation (28.0-62.0) fl RDW Coeff of Flaquito (11.0-15.0) % Plt Count (150-400) K/uL MPV (7.40-12.00) fL Add Manual Diff Neutrophils % (Manual) (48.0-80.0) % Lymphocytes % (Manual) (16.0-40.0) % Monocytes % (Manual) (0.0-15.0) % Eosinophils % (Manual) (0.0-7.0) % Nucleated RBC % /100WBC Absolute Seg Neuts (1.4-5.7) Lymphocytes # (Manual) (0.6-2.4) Monocytes # (Manual) (0.0-0.8) Eosinophils # (Manual) (0.0-0.7) Nucleated RBCs # K/uL INR 0.96 APTT 21.5 (18.6-31.3) SEC D-Dimer, Quantitative < 0.19 (0.0-0.50) mg/L FEU Sodium (136-145) mmol/L Potassium (3.5-5.1) mmol/L Chloride (98-107) mmol/L Carbon Dioxide (21.0-32.0) mmol/L BUN (7.0-18.0) mg/dL Creatinine (0.6-1.0) mg/dL Est Cr Clr Drug Dosing mL/min Estimated GFR (MDRD) ml/min Glucose (74-106) mg/dL Calcium (8.5-10.1) mg/dL Total Bilirubin (0.2-1.0) mg/dL AST (15-37) IU/L ALT (14-63) IU/L Alkaline Phosphatase (46-116) U/L Troponin I 0.145 H* (0.000-0.056) ng/mL B-Natriuretic Peptide (<100) PG/ML Total Protein (6.4-8.2) g/dL Albumin (3.4-5.0) g/dL Globulin (2.6-4.0) g/dL Albumin/Globulin Ratio (0.9-1.6) TSH 3rd Generation (0.36-3.74) uIU/mL SARS-CoV-2 RNA (KLEBER) NEGATIVE (NEGATIVE) Meds: Medications Generic Name Dose Route Start Last Admin Trade Name Freq PRN Reason Stop Dose Admin Sodium Chloride 10 ml 07/19/20 02:33 07/19/20 02:45 Saline Flush FLUSH 10 ml ASDIRECTED PRN Administration Keep Vein Open Sodium Chloride 2.5 ml 07/19/20 02:33 07/19/20 02:44 Saline Flush FLUSH 2.5 ml ASDIRECTED PRN Administration Keep Vein Open Discontinued Medications Generic Name Dose Route Start Last Admin Trade Name Sreeq PRN Reason Stop Dose Admin Aspirin 324 mg 07/19/20 02:33 07/19/20 02:43 Aspirin PO 07/19/20 02:34 324 mg ONETIME ONE Administration Metoprolol Succinate 50 mg 07/19/20 02:36 07/19/20 02:44 Toprol Xl PO 07/19/20 02:37 50 mg ONETIME ONE Administration Nitroglycerin 1 gm 07/19/20 02:37 07/19/20 02:44 Nitro-Bid 2% TOP 07/19/20 02:38 1 gm ONETIME ONE Administration Departure - Departure Time of Disposition: 05:09 Disposition: DC/Tfer to Acute Hospital 02 Clinical Impression: Acute coronary syndrome, Paroxysmal supraventricular tachycardia, Non-STEMI (non-ST elevated myocardial infarction) - Discharge Information Referrals: Beka Reynoso MD [Primary Care Provider] - Forms: ED Department Discharge Sepsis Event Note (ED) - Evaluation Sepsis Screening Result: No Definite Risk - Focused Exam Vital Signs: Vital Signs Temp Pulse Pulse Resp BP BP Pulse Ox 07/19/20 03:06 84 138/90 07/19/20 02:44 87 174/123 H 07/19/20 02:12 96.9 F 164 H 20 146/113 H 95 - My Orders Last 24 Hours: My Active Orders 07/19/20 02:33 EKG Documentation Completion [RC] AM Sodium Chloride 0.9% [Saline Flush] 10 ml FLUSH ASDIRECTED PRN Sodium Chloride 0.9% [Saline Flush] 2.5 ml FLUSH ASDIRECTED PRN Saline Lock Insert [OM.PC] Stat 07/19/20 03:19 Patient Status [ADT] Routine 07/19/20 05:06 Enoxaparin [Lovenox] 120 mg SUBCUT ONETIME STA - Assessment/Plan Last 24 Hours: My Active Orders 07/19/20 02:33 EKG Documentation Completion [RC] AM Sodium Chloride 0.9% [Saline Flush] 10 ml FLUSH ASDIRECTED PRN Sodium Chloride 0.9% [Saline Flush] 2.5 ml FLUSH ASDIRECTED PRN Saline Lock Insert [OM.PC] Stat 07/19/20 03:19 Patient Status [ADT] Routine 07/19/20 05:06 Enoxaparin [Lovenox] 120 mg SUBCUT ONETIME STA
[2020-07-19 03:02] LABS: BLOOD UREA NITROGEN,BUN 11 mg/dL (7.0-18.0); CARBON DIOXIDE,CO2 27.2 mmol/L (21.0-32.0); CHLORIDE,CL 101 mmol/L (98-107); GLUCOSE RANDOM 231 mg/dL (74-106); POTASSIUM,K 4.5 mmol/L (3.5-5.1); SODIUM,NA 138 mmol/L (136-145)
--- NOTE | 2020-07-19 03:19 | CR ---
Indication: Chest pain Technique: Chest 1 view Comparison: None Findings/Impression: Cardiovascular and mediastinum: Heart size and vasculature are normal in caliber and appearance. Lungs and pleural space: Lungs are clear. No sign of infiltrate or mass. No sign of pleural effusion. No pneumothorax. Bones and soft tissues: No acute findings. Dictated by Alex Mcgill MD @ Jul 19 2020 3:15AM Signed by Dr. Alex Mcgill @ Jul 19 2020 3:17AM
[2020-07-19] MEDS ORDERED: Enoxaparin 150 MG/1 ML Syringe SUBCUT STA (05:06)
[2020-07-19 06:07] VITALS: BP 136/90; PULSE 74
== END 2020-07-19 09:50 ==
LOC: MW.ED 02:05
DX: I21.4 Non-ST elevation (NSTEMI) myocardial infarction (principal); I24.9 Acute ischemic heart disease, unspecified; I47.1 Supraventricular tachycardia; I10 Essential (primary) hypertension; J44.9 Chronic obstructive pulmonary disease, unspecified; E11.9 Type 2 diabetes mellitus without complications; E66.9 Obesity, unspecified; Z68.41 Body mass index [BMI] 40.0-44.9, adult; Z20.822 Contact with and (suspected) exposure to COVID-19; Z79.899 Other long term (current) drug therapy; Z72.0 Tobacco use
CPT/HCPCS: 36415; 71045; 80053; 83880; 84443; 84484; 85025; 85379; 85610; 85730; 87635; 93005; 96372; 99285; A9270; J1650; 93010; U0002

== ENCOUNTER 2023-01-16 17:11 | Emergency (ER) | payer OTHER, BC ==
[2023-01-16] MEDS ORDERED: Acetaminophen 500 MG Tab PO ONE (17:44)
[2023-01-16] MEDS ORDERED: Ibuprofen 600 MG Tab PO ONE (17:44)
[2023-01-16 19:29] VITALS: BP 142/78; PULSE 79
== END 2023-01-16 19:28 | disposition home or self-care (01) ==
LOC: MW.ED 17:11
DX: S97.112A Crushing injury of left great toe, initial encounter (principal); S83.92XA Sprain of unspecified site of left knee, initial encounter; S93.502A Unspecified sprain of left great toe, initial encounter; I25.10 Atherosclerotic heart disease of native coronary artery without angina pectoris; I10 Essential (primary) hypertension; E11.9 Type 2 diabetes mellitus without complications; F17.210 Nicotine dependence, cigarettes, uncomplicated; Z79.899 Other long term (current) drug therapy; W01.0XXA Fall on same level from slipping, tripping and stumbling without subsequent striking against object, initial encounter; Y93.01 Activity, walking, marching and hiking; Y92.89 Other specified places as the place of occurrence of the external cause; Y99.0 Civilian activity done for income or pay
CPT/HCPCS: 73562; 73660; 99283; A9270

== ENCOUNTER 2024-09-06 09:41 | Emergency (ER) | payer BC, OTHER ==
[2024-09-06] MEDS: Lidocaine 4% Patch TOP STA (10:27)
[2024-09-06 12:31] VITALS: BP 146/79; PULSE 77
== END 2024-09-06 12:10 | disposition home or self-care (01) ==
LOC: MW.ED 09:41
DX: R07.81 Pleurodynia (principal); I10 Essential (primary) hypertension; E78.00 Pure hypercholesterolemia, unspecified; I25.10 Atherosclerotic heart disease of native coronary artery without angina pectoris; E11.9 Type 2 diabetes mellitus without complications; F17.210 Nicotine dependence, cigarettes, uncomplicated; Z79.899 Other long term (current) drug therapy; Z79.51 Long term (current) use of inhaled steroids
CPT/HCPCS: 71250; 99283; A9270

== ENCOUNTER 2025-01-20 06:41 | Emergency (ER) | payer BC, MEDICAID, OTHER ==
[2025-01-20] MEDS: Ketorolac 30 MG/ML SDV IVPUSH ONE (07:49)
[2025-01-20] MEDS: methylPREDNISolone Sodium Succinate 125 MG/2 ML SDV IVPUSH ONE (07:49)
[2025-01-20 07:58] LABS: BASOPHILS ABSOLUTE AUTO 0.04 K/uL (0.00-0.20); BASOPHILS PERCENT AUTO 0.4 % (0.0-1.0); EOSINOPHILS ABSOLUTE AUTO 0.20 K/uL (0.00-0.45); EOSINOPHILS PERCENT AUTO 2.0 % (0.0-6.0); IMMATURE GRAN ABSOLUTE AUTO 0.02 K/uL (0.00-0.05); IMMATURE GRAN PERCENT AUTO 0.2 % (0.0-0.4); LYMPHOCYTES ABSOLUTE AUTO 1.38 K/uL (1.00-4.80); LYMPHOCYTES PERCENT AUTO 13.9 % (24.0-44.0); MEAN PLATELET VOLUME 9.5 fL (9.4-12.3); MONOCYTES ABSOLUTE AUTO 0.68 K/uL (0.00-0.80); MONOCYTES PERCENT AUTO 6.8 % (0.0-8.0); NEUTROPHILS ABSOLUTE AUTO 7.61 K/uL (1.80-7.70); NEUTROPHILS PERCENT AUTO 76.7 % (41.0-71.0); NRBC ABSOLUTE 0.00 K/uL (0.00-0.02); NRBC PERCENT 0.0 /100WBC (0.0-0.2); PLATELET COUNT,PLT 149 K/uL (150-400); RED BLOOD CELL COUNT 4.68 M/uL (4.10-5.30); WHITE BLOOD CELL COUNT,WBC 9.93 K/uL (3.9-11.3)
[2025-01-20 08:09] LABS: INR 0.97 (0.86-1.11)
[2025-01-20 08:27] LABS: A/G RATIO 0.9 (0.9-1.6); ALANINE AMINOTRANSFERASE,ALT 87.0 IU/L (14-63); ASPARTATE AMNIOTRANSFERASE,AST 51.0 IU/L (15-37); BILIRUBIN TOTAL 0.5 mg/dL (0.2-1.0); BLOOD UREA NITROGEN,BUN 17.0 mg/dL (7.0-18.0); CARBON DIOXIDE,CO2 28.3 mmol/L (21.0-32.0); CHLORIDE,CL 101.0 mmol/L (98-107); CREATININE 1.0 mg/dL (0.6-1.0); EST CRCL DRUG DOSING (CG) 58.11 mL/min; ESTIMATED GFR 66.0 mL/min (>60); GLUCOSE RANDOM 223.0 mg/dL (74-106); POTASSIUM,K 3.8 mmol/L (3.5-5.1); PRO B-TYPE NATRIUR PEPT,BNPPRO 226.0 pg/mL (0-125); PROTEIN TOTAL,TP 7.0 g/dL (6.4-8.2); SODIUM,NA 139.0 mmol/L (136-145)
[2025-01-20] MEDS: Iopamidol 755 Mg/ML 100 ML Bottle IVPUSH ONE (08:31)
[2025-01-20] MEDS: Magnesium Sulfate 2 GM/50 mL 2 GM in Premix Bag 1 BAG IV ONE (08:36)
[2025-01-20 09:22] VITALS: BP 128/77; PULSE 72
== END 2025-01-20 09:22 | disposition home or self-care (01) ==
LOC: MW.ED 06:41
DX: S20.212A Contusion of left front wall of thorax, initial encounter (principal); R06.02 Shortness of breath; R94.5 Abnormal results of liver function studies; R79.89 Other specified abnormal findings of blood chemistry; I25.10 Atherosclerotic heart disease of native coronary artery without angina pectoris; J44.9 Chronic obstructive pulmonary disease, unspecified; E78.00 Pure hypercholesterolemia, unspecified; I10 Essential (primary) hypertension; E11.9 Type 2 diabetes mellitus without complications; Z79.899 Other long term (current) drug therapy; Z79.51 Long term (current) use of inhaled steroids; W18.39XA Other fall on same level, initial encounter; Y93.89 Activity, other specified
CPT/HCPCS: 36415; 71045; 71260; 80053; 83735; 83880; 84484; 85025; 85610; 93005; 96365; 96375; 99285; A9270; J1885; J2919; J3475; J7620; Q9967; 93010; 99283